=== PATIENT | male | born 1960 | race Asian ===

== ENCOUNTER 2019-02-02 23:56 | Emergency (ER) | payer OTHER ==
[~2019-02-02] VITALS: Ht 175.3 cm; Wt 86.2 kg
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
--- NOTE | 2019-02-03 00:46 | NUR ---
PT TAKEN TO CT SCAN
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
[2019-02-03] MEDS ORDERED: KETOROLAC TROMETHAMINE INJ 60 MG/2 ML VIAL IM ONE (01:00)
[2019-02-03] MEDS ORDERED: KETOROLAC TROMETHAMINE INJ 30 MG/ML VIAL ONE (01:22)
[2019-02-03] MEDS ORDERED: CYCLOBENZAPRINE 10 MG TABLET ONE (01:22)
[2019-02-03] MEDS ORDERED: HYDROCODONE/APAP 5/325MG 1 EACH TABLET ONE (01:22)
[2019-02-03] MEDS ORDERED: ONDANSETRON 4 MG TAB.RAPDIS ONE (01:23)
[2019-02-03] MEDS ORDERED: ONDANSETRON 4 MG TAB.RAPDIS SL ONE (01:30)
[2019-02-03] MEDS ORDERED: CYCLOBENZAPRINE 10 MG TABLET PO ONE (01:30)
[2019-02-03] MEDS ORDERED: HYDROCODONE/APAP 5/325MG 1 EACH TABLET PO ONE (01:30)
--- NOTE | 2019-02-03 02:35 | NUR ---
Patient discharged to home in stable condition. Written and verbal after care instructions given. Patient verbalizes understanding of instruction.Pt ambulatory with a steady gait
[2019-02-03 04:16] VITALS: BP 127/79
== END 2019-02-03 02:35 | disposition home or self-care (01) ==
LOC: ER 23:58
DX: S16.1XXA Strain of muscle, fascia and tendon at neck level, initial encounter (principal); V49.49XA Driver injured in collision with other motor vehicles in traffic accident, initial encounter; Y93.89 Activity, other specified; Y92.413 State road as the place of occurrence of the external cause; Y99.8 Other external cause status
CPT/HCPCS: 72125; 96372; 99284; J1885; Q0162